=== PATIENT | female | born 1940 | race Caucasian/White ===

== ENCOUNTER → 2020-05-20 | Outpatient (CLI) | payer MEDICARE ==
[~2020-05-20] MED LIST: IOHEXOL 240 MG/ML 50ML VIAL. ONE
--- NOTE | 2020-05-20 17:25 | RAD ---
EXAM: Abdomen and pelvis CT without intravenous contrast. HISTORY: Constipation. TECHNIQUE: Computed tomographic images of the abdomen and pelvis were obtained without contrast. Multiplanar reformatting was performed. *One or more of the following individualized dose reduction techniques were utilized for this examination: 1. Automated exposure control. 2. Adjustment of the mA and/or kV according to patient size. 3. Use of iterative reconstruction technique. COMPARISON: None. FINDINGS: Evaluation of the lower thorax demonstrates a moderate pericardial effusion and small bilateral pleural effusions. The heart is normal in size. There is right basilar atelectasis or interstitial infiltrate. There is a patulous distal esophagus. There is a 5 mm hypodense lesion within the right hepatic lobe, too small to characterize. The gallbladder contains layering stones. The pancreas is unremarkable. There are splenic granulomas. There is a tiny splenule inferior to the spleen. The adrenal glands are unremarkable. There is left greater than right renal atrophy with cortical thinning and scarring. There is no nephrolithiasis. There is no hydronephrosis. The bladder is unremarkable. There is a moderate amount of stool throughout the colon. There is distal colonic diverticulosis. There is no convincing diverticulitis. There is no evidence of bowel obstruction. There is aortic and aortic branch vessel calcified atherosclerotic plaque. No aneurysm is seen. There are small fat-containing supraumbilical and umbilical hernias. There is a femoral to femoral bypass. There is a right hip arthroplasty. There are degenerative changes throughout the spine. There is no suspicious or acute osseous finding. IMPRESSION: 1. Moderate colonic stool. There is no evidence of obstruction. 2. Distal colonic diverticulosis. 3. Cholelithiasis. 4. Small fat-containing supraumbilical and umbilical hernias. 5. Moderate pericardial effusion and small bilateral pleural effusions with right basilar atelectasis or interstitial infiltrate. 6. Tiny hypodense lesion within the liver. In the absence of known malignancy, this is likely a cyst or hemangioma. 7. Bilateral renal atrophy and cortical scarring. There also a suspected small simple cyst within the left kidney. Follow-up is not routinely recommended for simple cysts. Electronically signed by: Rajani Pace MD (05/20/2020 5:22 PM) [facility]
== END ==
LOC: CT 15:28
PROVIDERS: ATTEND Family Medicine
DX: K57.30 Diverticulosis of large intestine without perforation or abscess without bleeding (principal); K80.20 Calculus of gallbladder without cholecystitis without obstruction; K59.00 Constipation, unspecified; N28.1 Cyst of kidney, acquired; N26.1 Atrophy of kidney (terminal); J90 Pleural effusion, not elsewhere classified; I31.3 Pericardial effusion (noninflammatory); K42.9 Umbilical hernia without obstruction or gangrene; R19.8 Other specified symptoms and signs involving the digestive system and abdomen
CPT/HCPCS: 74176

== ENCOUNTER 2020-11-13 14:41 | Emergency (ER) | payer MEDICARE ==
[~2020-11-13] VITALS: Ht 165.1 cm; Wt 62.1 kg
--- NOTE | 2020-11-13 15:21 | PHYS DOC ---
General Adult EDM: Chief Complaint: HEMATEMESIS/VOMITING BLOOD HPI: HPI: Patient is a 80-year-old female presents with rectal bleeding. Son states that his mom started having rectal bleeding in the middle of the night. Patient denies nausea/vomiting/diarrhea. Denies pain. Patient is a DNR and is refusing blood transfusion or any medications at this time. (TYRESE VO APRN) Review of Systems: Review of Systems: Constitutional: Denies fever or chills Eyes: Denies change in visual acuity HENT: Denies nasal congestion or sore throat Respiratory: Denies cough or shortness of breath Cardiovascular: Denies chest pain or edema GI: Denies abdominal pain, nausea, vomiting. Reports bloody stools : Denies dysuria Musculoskeletal: Denies back pain or joint pain Integument: Denies rash Neurologic: Denies headache, focal weakness or sensory changes Endocrine: Denies polyuria or polydipsia Lymphatic: Denies swollen glands Psychiatric: Denies depression or anxiety (TYRESE VO APRN) Physical Exam: PE: Constitutional: Well developed, well nourished, no acute distress, non-toxic appearance. [] HENT: Normocephalic, atraumatic, bilateral external ears normal, oropharynx moist, no oral exudates, nose normal. [] Eyes: PERRLA, EOMI, conjunctiva normal, no discharge. [] Neck: Normal range of motion, no tenderness, supple, no stridor. [] Cardiovascular:Heart rate regular rhythm, no murmur [] Lungs & Thorax: Bilateral breath sounds clear to auscultation [] Abdomen: Bowel sounds normal, soft, no tenderness, no masses, no pulsatile masses. [] Skin: Warm, dry, no erythema, no rash. Patient is pale. [] Back: No tenderness, no CVA tenderness. [] Extremities: No tenderness, no cyanosis, no clubbing, ROM intact, no edema. [] Neurologic: Alert and oriented X 3, normal motor function, normal sensory function, no focal deficits noted. [] Psychologic: Affect normal, judgement normal, mood normal. [] (TYRESE VO APRN) EKG: EKG: [] (TYRESE VO APRN) Radiology/Procedures: Radiology/Procedures: []EXAM: Chest, single view. HISTORY: Hematemesis. COMPARISON: CT dated 01/31/2018. FINDINGS: Frontal views of the chest are obtained. There is right greater than left apical parenchymal scarring and emphysema. The previously demonstrated left suprahilar mass is not seen. There is left hemithorax volume loss possibly due to partial lung resection. IMPRESSION: Suspected right greater than left apical pleural-parenchymal scarring superimposed on emphysema. Electronically signed by: Rajani Pace MD (11/13/2020 3:47 PM) [id number] (TYRESE VO APRN) Heart Score: C/O Chest Pain: No Risk Factors: Risk Factors: DM, Current or recent (<one month) smoker, HTN, HLP, family history of CAD, obesity. Risk Scores: Score 0 - 3: 2.5% MACE over next 6 weeks - Discharge Home Score 4 - 6: 20.3% MACE over next 6 weeks - Admit for Clinical Observation Score 7 - 10: 72.7% MACE over next 6 weeks - Early Invasive Strategies (TYRESE VO APRN) Course & Med Decision Making: Course & Med Decision Making Pertinent Labs and Imaging studies reviewed. (See chart for details) [] 80-year-old female brought in by son for rectal bleeding. Son states that she started having rectal bleeding in the middle of the night. Patient is alert and oriented. Patient's denying pain. Patient states "I just want to ". "I do not want any medications or blood transfusions I just want to go home with hospice". Son is power of admitted attorneys, states patient is DNR. Plan the patient that her hemoglobin was 7.5. Patient states "I just want to I do not want to take any medications". Patient given a prescription for Keflex to treat UTI. Explained to patient that they needed to follow-up with PCP. Son states that mom is not willing to do that and just wants to . Patient and son are both okay with discharge plan. (TYRESE VO APRN) Dragon Disclaimer: Dragon Disclaimer: This electronic medical record was generated, in whole or in part, using a voice recognition dictation system. (TYRESE VO APRN) Attending Co-Sign The patient was seen and interviewed as well as examined at the bedside. The chart was reviewed. The case was discussed. Agree with the plan of care. (SUHAIL PRITCHARD DO) Departure Departure: Impression: Primary Impression: Urinary tract infection Qualified Codes: N30.00 - Acute cystitis without hematuria Additional Impression: Rectal bleed Disposition: HOME / SELF CARE / HOMELESS Condition: STABLE Referrals: RAMIRO GUERRA (PCP) Patient Instructions: Urinary Tract Infection Additional Instructions: You are seen in the emergency room for rectal bleeding. Your hemoglobin was 7.5. I am sending you with a prescription for Keflex to treat UTI. EMERGENCY DEPARTMENT GENERAL DISCHARGE INSTRUCTIONS Thank you for coming to [facility] (ED) today and trusting us with you care. We trust that you had a positivie experience in our Emergency Department. If you wish to speak to the department management, you may call the director at [phone]. YOUR FOLLOW UP INSTRUCTIONS ARE FOLLOWS: 1. Do you have a private Doctor? If you do not have a private doctor, please ask for a resource list of physicians or clinics that may be able to assist you with follow up care. 2. The Emergency Physician has interpreted your x-rays. The X-Ray specialist will also review them. If there is a change in the findings, you will be notified in 48 hours when at all possible. 3. A lab test or culture has been done, your results will be reviewed and you will be notified if you need a change in treatment. ADDITIONAL INSTRUCTIONS AND INFORMATION: 1. Your care today has been supervised by a physician who is specially trained in emergency care. Many problems require more than one evaluation for a complete diagnosis and treatment. We recommend that you schedule your follow up appointment as recommended to ensure complete treatment of you illness or injury. If you are unable to obtain follow up care and continue to have a problem, or if your condition worsens, we recommend that you return to the ED. 2. We are not able to safely determine your condition over the phone nor are we able to give sound medical advice over the phone. For these safety reasons, if you call for medical advice we will ask you to come to the ED for further evaluation. 3. If you have any questions regarding these discharge instructions please call the ED at [phone]. SAFETY INFORMATION: In the interest of safety, wellness, and injury prevention; we encourage you to wear your sealbelt, if you smoke; quite smoking, and we encourage family to use a protective helmet for bicycling and other sporting events that present an increased risk for head injury. IF YOUR SYMPTOMS WORSEN OR NEW SYMPTOMS DEVELOP, OR YOU HAVE CONCERNS ABOUT YOUR CONDITION; OR IF YOUR CONDITION WORSENS WHILE YOU ARE WAITING FOR YOUR FOLLOW UP APPOINTMENT; EITHER CONTACT YOUR PRIMARY CARE DOCTOR, THE PHYSICIAN WHOSE NAME AND NUMBER YOU WERE GIVEN, OR RETURN TO THE ED IMMEDIATELY. Scripts Cephalexin (CEPHALEXIN) 500 Mg Tablet 1 TAB PO BID for infection for 5 Days, #10 TAB Prov: TYRESE VO APRN 11/13/20 TYRESE VO APRN November 13, 2020 15:21 SUHAIL PRITCHARD DO November 14, 2020 06:16
[2020-11-13] MEDS ORDERED: ONDANSETRON PF 4 MG/2 ML VIAL. IVP ONE (15:30)
--- NOTE | 2020-11-13 15:35 | EKG ---
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
[2020-11-13 15:47] LABS: BASO % 0 % (0-3); EOS % 0 % (0-3); HEMATOCRIT 22.8 % (36.0-47.0); HEMOGLOBIN 7.5 g/dL (12.0-15.5); LYMPH # 1.3 x10^3/uL (1.0-4.8); LYMPH % 16 % (24-48); MEAN CORPUSCULAR HEMOGLOBIN 31 pg (25-35); MEAN CORPUSCULAR HGB CONC 33 g/dL (31-37); MEAN CORPUSCULAR VOLUME 93 fL (79-100); MONO # 0.5 x10^3/uL (0.0-1.1); MONO % 7 % (0-9); NEUT # 6.2 x10^3uL (1.8-7.7); NEUT % 77 % (31-73); PLATELET COUNT 122 x10^3/uL (140-400); RED BLOOD COUNT 2.44 x10^6/uL (3.50-5.40); RED CELL DISTRIBUTION WIDTH 18.3 % (11.5-14.5)
--- NOTE | 2020-11-13 15:49 | RAD ---
EXAM: Chest, single view. HISTORY: Hematemesis. COMPARISON: CT dated 01/31/2018. FINDINGS: Frontal views of the chest are obtained. There is right greater than left apical parenchyma l scarring and emphysema. The previously demonstrated left suprahilar mass is not seen. There is left hemithorax volume loss possibly due to partial lung resection. IMPRESSION: Suspected right greater than left apical pleural-parenchymal scarring superimposed on emp hysema. Electronically signed by: Rajani Pace MD (11/13/2020 3:47 PM) [id number]
[2020-11-13 15:53] LABS: CREATININE 2.8 mg/dL (0.6-1.0); GFR 16.2; POTASSIUM 3.5 mmol/L (3.5-5.1)
[2020-11-13 15:59] LABS: ALBUMIN 3.6 g/dL (3.4-5.0); ALBUMIN/GLOBULIN RATIO 1.2 (1.0-1.7); TOTAL BILIRUBIN 0.3 mg/dL (0.2-1.0); TOTAL PROTEIN 6.5 g/dL (6.4-8.2)
[2020-11-13 17:15] VITALS: BP 151/69
[2020-11-13 17:33] LABS: AMORPHOUS SEDIMENT,UR PRESENT /HPF; BACTERIA,URINE MOD /HPF (0-FEW); BILIRUBIN,URINE NEG (NEG); CLARITY,URINE CLEAR; COLOR,URINE YELLOW; GLUCOSE,URINE NEG (NEG); NITRITE,URINE NEG (NEG); RBC,URINE RARE /HPF (0-2); SQUAMOUS EPITHELIAL CELL,UR OCC /LPF; UROBILINOGEN,URINE 0.2 mg/dL (0.2 mg/dL); WBC,URINE RARE /HPF (0-4)
[2020-11-13] MEDS ORDERED: CEPH500T PO (17:33)
== END 2020-11-13 18:00 | disposition home or self-care (01) ==
LOC: ER 14:41
DX: K62.5 Hemorrhage of anus and rectum (principal); N39.0 Urinary tract infection, site not specified
CPT/HCPCS: 36415; 71045; 80053; 81001; 85025; 86850; 86900; 86901; 87086; 93005; 96374; 99285; J2405

== ENCOUNTER → 2021-02-15 | Outpatient (CLI) | payer MEDICARE ==
[~2021-02-15] MED LIST changes: +CEPH500T PO; +IOHEXOL 240 MG/ML 50ML VIAL. PO ONE; +IOHEXOL 300 MG/ML 75 ML VIAL. IV ONE
[2021-02-15 16:04] LABS: CREATININE 1.1 mg/dL (0.6-1.0); GFR 47.7
--- NOTE | 2021-02-15 17:32 | RAD ---
CT scan of the abdomen and pelvis with contrast 02/15/2021 CLINICAL HISTORY: Abdominal bloating. TECHNIQUE: After the oral administration contrast and the intravenous administration of 60 cc of Omni paque 300 only, contiguous, 5 mm axial sections were obtained through the abdomen and pelvis. One or more of the following individualized dose reduction techniques were utilized for this study: 1. Automated exposure control. 2. Adjustment of the mA and/or kV according to patient size. 3. Use of iterative reconstruction technique. FINDINGS: Images through the lung bases demonstrate mild cardiomegaly. Dependent subsegmental atelect asis is seen involving both lower lobes. A 3 mm low-attenuation lesion is seen involving the dome of the liver. A 5 mm low-attenuation lesion is seen involving left lobe liver. These are consistent with hepatic cysts. Calcified granulomas are seen scattered throughout the spleen. The pancreas, adrenal glands and right kidney are within normal limits. A 6 mm rounded low-attenuation lesion is seen involving the midpole of the left kidney. This likely represents a cyst. No further imaging evaluation is recommended. Atherosclerotic calcification of the abdominal aorta and its branches is noted. The abdominal aorta i s ectatic but tapers normally. Calcified gallstones are seen within the gallbladder. There is no evid ence of bowel obstruction. A fat-containing midline ventral hernia is seen which measures 5 cm in gre atest transverse diameter. Images through the pelvis demonstrate the urinary bladder distended with urine. Diverticula are seen involving the sigmoid colon. No inflammatory changes are seen in the adjacent fat. Calcifications are seen within the pelvis consistent with phleboliths. No free fluid is seen. A femorofemoral arterial bypass graft is noted. The patient is post right BRANDON. Very mild S-shaped curvature of the thoracolum bar spine is seen. Degenerative changes are seen involving the lower thoracic and throughout the lumb ar spine along with the left hip. IMPRESSION: No acute abnormality is seen. Electronically signed by: Zack Richardson MD (02/15/2021 5:29 PM) [id number]
== END ==
LOC: CT 15:08
PROVIDERS: ATTEND Family Medicine
DX: K57.30 Diverticulosis of large intestine without perforation or abscess without bleeding (principal); K80.20 Calculus of gallbladder without cholecystitis without obstruction; K43.9 Ventral hernia without obstruction or gangrene; N32.89 Other specified disorders of bladder; K76.9 Liver disease, unspecified; N28.9 Disorder of kidney and ureter, unspecified; I70.0 Atherosclerosis of aorta; I77.811 Abdominal aortic ectasia; J98.11 Atelectasis; I51.7 Cardiomegaly; M47.815 Spondylosis without myelopathy or radiculopathy, thoracolumbar region
CPT/HCPCS: 36415; 74177; 82565; 84520; Q9967